=== PATIENT | female | born 1960 | race Caucasian/White ===

== ENCOUNTER 2020-07-21 14:41 | Outpatient (CLI) | payer BC, OTHER ==
[2020-07-22 13:54] LABS: SARS-CoV-2 MS2 Positive; SARS-CoV-2 N Gene Negative; SARS-CoV-2 S Gene Negative; SARS-CoV-2 by NAA Not Detected (NotDetected); SARS-CoV-2 orf1ab Negative
== END 2020-07-21 14:42 | disposition home or self-care (01) ==
LOC: LABBT 14:41
PROVIDERS: ATTEND Surgery
DX: K21.9 Gastro-esophageal reflux disease without esophagitis (principal); K44.9 Diaphragmatic hernia without obstruction or gangrene; Z20.828 Contact with and (suspected) exposure to other viral communicable diseases
CPT/HCPCS: 87635; U0003

== ENCOUNTER 2020-07-21 15:30 | Inpatient (IN) | payer BC ==
[2020-07-26] MEDS ORDERED: Ondansetron PF 4 MG/2 ML Vial ONE (10:05)
[2020-07-26] MEDS ORDERED: Dexamethasone 20 MG/5 ML VIAL ONE (10:05)
[2020-07-26] MEDS ORDERED: Succinylcholine Chloride 20 MG/ML 10 ml SYRINGE FS ONE (10:05)
[2020-07-26] MEDS ORDERED: Glycopyrrolate 0.2 MG/ML 5 ML SYRINGE ONE (10:05)
[2020-07-26] MEDS ORDERED: PHENYLEPHRINE-NS 100 MCG/ML 10 ML SYRINGE ONE (10:05)
[2020-07-26] MEDS ORDERED: PROPOFOL 200 MG/20 ML VIAL ONE (10:05)
[2020-07-26] MEDS ORDERED: Lidocaine 1% PF 5 ML VIAL ONE (10:05)
[2020-07-26] MEDS ORDERED: Rocuronium Bromide 10 MG/ML (10ML VIAL) ONE (10:05)
[2020-07-26] MEDS ORDERED: cefOXitin Sodium/Dextrose 2 GM/50 ML BAG ONE (11:33)
[2020-07-26] MEDS ORDERED: Scopolamine 1.5 mg/72 hour Patch ONE (12:07)
[2020-07-26] MEDS ORDERED: Enoxaparin Sodium 40 MG/0.4 ML SYRINGE ONE (12:08)
[2020-07-26] MEDS ORDERED: Midazolam HCl 2 mg/2 ml Vial ONE (13:09)
[2020-07-26] MEDS ORDERED: Propofol 1,000 MG/100 ML VIAL IV ONE (13:09)
[2020-07-26] MEDS ORDERED: Fentanyl 250 MCG/5 ML VIAL ONE (13:09)
[2020-07-26 13:24] LABS: #Eosinphils 0.1 thou/uL (0.0-0.7); #Lymphocytes 1.1 thou/uL (1.20-3.40); #Monocytes 0.5 thou/uL (0.11-0.59); #Neutrophils 4.8 thou/uL (1.40-6.50); %Basophils 0.1 % (0.0-1.0); %Eosinophils 1.8 % (0.0-10.0); %Lymphocytes 16.8 % (21.0-51.0); %Monocytes 8.3 % (0.0-10.0); Hemoglobin 12.6 g/dL (12.0-16.0); Mean Corpuscular HGB CONC 32.6 g/dL (32.0-36.0); Mean Corpuscular Hemoglobin 28.1 pg (27.0-31.0); Mean Corpuscular Volume 86.3 fL (78.0-98.0); Mean Platelet Volume 6.6 fL (7.4-10.4); Platelet Count 322 thou/uL (130-400); RBC Distribution Width 18.3 % (11.5-14.5); Red Blood Cell (RBC) Count 4.46 mill/uL (4.20-5.40); White Blood Cell (WBC) Count 6.6 thou/uL (4.8-10.8)
[2020-07-26 13:50] LABS: Anion Gap 15 mmol/L (10-20); BUN (Urea Nitrogen) 20 mg/dL (9.8-20.1); Calc. Creatinine Clearance 0 mL/min (70-130); Calcium 8.5 mg/dL (7.8-10.44); Carbon Dioxide 24 mmol/L (22-29); Chloride 103 mmol/L (98-107); Estimated GFR-MDRD 81; Glucose 70 mg/dL (70-105); Potassium 3.8 mmol/L (3.5-5.1); Sodium 138 mmol/L (136-145)
[2020-07-26] MEDS ORDERED: Lidocaine 1% w/Epinephrine 1:100K 20 ML VIAL ONE (13:59)
[2020-07-26] MEDS ORDERED: Bupivacaine PF 0.5% 30 ML VIAL ONE (13:59)
--- NOTE | 2020-07-26 17:26 | PDOC.OP ---
Operative Note - Operative Note Operative Note: DATE OF SURGERY: July 26, 2020 SURGEON: Pierre Cazares MD PREOPERATIVE DIAGNOSIS: GERD with esophagitis Hiatal hernia Obesity status post sleeve gastrectomy POSTOPERATIVE DIAGNOSIS: GERD with esophagitis Hiatal hernia Obesity status post sleeve gastrectomy PROCEDURE: Paraesophageal hernia repair INDICATIONS: 89-year-old female with morbid obesity and the comorbidities of morbid obesity who underwent sleeve gastrectomy in 2013. Since that time, she has developed significant gastroesophageal reflux disease with esophagitis. She was evaluated in clinic and deemed a good candidate for hiatal hernia repair with partial gastrectomy and Guille-en-Y reconstruction. PROCEDURE IN DETAIL: The patient was brought to the operating room and positioned supine on the operating room table. After induction of general, endotracheal anesthesia, the patient was prepared and draped in the usual fashion. Prior to beginning the procedure, a complete timeout was performed with all members of the operative team being present and in agreement. Access to the abdomen was obtained in the right upper quadrant using an optical trocar under direct visualization. A Tate retractor was placed in the left lobe of the liver was elevated. The abdomen was insufflated and additional trochars placed under direct visualization. The abdominal cavity was examined and dense omental and small bowel adhesions were noted to a prior mesh hernioplasty. Lysis of adhesions was performed in order to mobilize enough small bowel for Guille-en-Y reconstruction. Given the density of the adhesions to the mesh, this was abandoned and we proceeded with paraesophageal hernia repair. The pars flaccida was entered bluntly and dissected to the hiatus. The hernia sac was entered at the right colton and the esophagus dissected. The dissection continued anteriorly and posteriorly until the cessation of fibers were encountered. The left colton was dissected in a similar fashion. Circumferential dissection of the esophagus was performed until 2 to 3 cm of esophagus lie within the abdominal cavity without any tension. A posterior cruroplasty was performed using ohbarbed permanent suture in a running fashion. This was done over a sleeve gastrectomy calibration tube. The tube was advanced to the pylorus to identify the morphology of the sleeve. While there may be slight tapering at the angularis, the sleep seemed to be of adequate caliber without stricture. The abdomen was examined and excellent hemostasis achieved. The 12 mm trocar sites were closed using 0 Vicryl ties and a suture passer. The skin was closed with Monocryl and dressed with skin adhesive dressing. At the conclusion of the case, all sponge and instrument counts were correct. ESTIMATED BLOOD LOSS: Minimal COMPLICATIONS: None INTRAOPERATIVE BLOOD TRANSFUSIONS: None GRAFTS / IMPLANTS: None SPECIMENS: None DISPOSITION: The patient was transported to the postoperative recovery unit in good conditions to be transferred to the floor when criteria met.
[2020-07-26] MEDS ORDERED: Hydrocodone-Acetamin 15 ML UDCUP PO PRN (17:34)
[2020-07-26] MEDS ORDERED: Promethazine HCl 25 MG/ML VIAL IM PRN (17:34)
[2020-07-26] MEDS ORDERED: Ondansetron PF 4 MG/2 ML Vial IVP PRN (17:34)
[2020-07-26] MEDS ORDERED: Dextrose 5% in Water 1,000 ML IV PRN (17:34)
[2020-07-26] MEDS ORDERED: Dextrose 50% Abboject 50 ML SYRINGE SLOW IVP PRN (17:34)
[2020-07-26] MEDS ORDERED: diphenhydrAMINE 50 MG/ML VIAL IVP PRN (17:34)
[2020-07-26] MEDS ORDERED: Fentanyl 100 MCG/2 ML VIAL ONE (17:55)
[2020-07-26] MEDS ORDERED: Ketorolac Tromethamine 30 MG/ML VIAL IVP SCH (18:00)
[2020-07-26] MEDS: Ketorolac Tromethamine 30 MG/ML VIAL IVP SCH (20:09)
[2020-07-26] MEDS: Carvedilol 6.25 MG TAB PO SCH (20:10)
[2020-07-26] MEDS: 1/2 NS w/KCL 20 mEq 1,000 ML IV SCH (20:17)
[2020-07-26 20:22] VITALS: BMI 31.6
[2020-07-26] MEDS ORDERED: rOPINIRole HCl 1 MG TAB PO SCH (21:00)
--- NOTE | 2020-07-26 22:24 | EKG ---
Test Reason : PREOP Blood Pressure : / mmHG Vent. Rate : 068 BPM Atrial Rate : 068 BPM P-R Int : 176 ms QRS Dur : 138 ms QT Int : 462 ms P-R-T Axes : 069 -22 055 degrees QTc Int : 491 ms Normal sinus rhythm with sinus arrhythmia Left bundle branch block Abnormal ECG Confirmed by Marcelle VARMA ([id number]) on 07/26/2020 10:24:39 PM Referred By: AURELIO Confirmed By:Marcelle VARMA
[2020-07-27] MEDS: 1/2 NS w/KCL 20 mEq 1,000 ML IV SCH ×2 (03:32→12:36)
[2020-07-27] MEDS: Ketorolac Tromethamine 30 MG/ML VIAL IVP SCH ×3 (03:32→15:14)
[2020-07-27 05:14] LABS: #Lymphocytes 0.6 thou/uL (1.20-3.40); #Monocytes 0.3 thou/uL (0.11-0.59); #Neutrophils 5.7 thou/uL (1.40-6.50); %Basophils 0.2 % (0.0-1.0); %Lymphocytes 9.8 % (21.0-51.0); %Monocytes 3.7 % (0.0-10.0); %Neutrophils 86.3 % (42.0-75.0); Hemoglobin 11.9 g/dL (12.0-16.0); Mean Corpuscular HGB CONC 31.2 g/dL (32.0-36.0); Mean Corpuscular Hemoglobin 27.1 pg (27.0-31.0); Mean Corpuscular Volume 86.8 fL (78.0-98.0); Mean Platelet Volume 6.7 fL (7.4-10.4); Platelet Count 321 thou/uL (130-400); RBC Distribution Width 18.2 % (11.5-14.5); White Blood Cell (WBC) Count 6.6 thou/uL (4.8-10.8)
[2020-07-27 05:33] LABS: Anion Gap 15 mmol/L (10-20); BUN (Urea Nitrogen) 15 mg/dL (9.8-20.1); Calc. Creatinine Clearance 97 mL/min (70-130); Calcium 7.7 mg/dL (7.8-10.44); Carbon Dioxide 21 mmol/L (22-29); Chloride 102 mmol/L (98-107); Estimated GFR-MDRD 82; Glucose 92 mg/dL (70-105); Potassium 4.8 mmol/L (3.5-5.1); Sodium 133 mmol/L (136-145)
[2020-07-27] MEDS ORDERED: Levothyroxine Sodium 88 MCG TAB PO SCH (06:00)
[2020-07-27] MEDS: Carvedilol 6.25 MG TAB PO SCH (08:24)
--- NOTE | 2020-07-27 08:24 | PDOC.BPN ---
- Brief Progress Note Encounter Date: 07/27/20 Encounter Time: 08:21 DATE OF ADMISSION: July 26, 2020 DATE OF DISCHARGE: July 27, 2020 ADMISSION DIAGNOSES: Morbid obesity status post sleeve gastrectomy Hiatal hernia with GERD DISCHARGE DIAGNOSES: Morbid obesity status post sleeve gastrectomy Hiatal hernia with GERD PROCEDURES: Robotic paraesophageal hernia repair HOSPITAL COURSE: 60-year-old female with morbid obesity and the comorbidities of morbid obesity status post sleeve gastrectomy in 2013, who was evaluated for severe GERD in clinic. They presented on July 26, 2020 for paraesophageal hernia repair with partial gastrectomy and Guille-en-Y reconstruction. Intraoperatively, they were found to have extensive interloop adhesions, so the reconstruction was not attempted. She underwent a paraesophageal hernia repair.. They tolerated the procedure well, and were transferred to the floor. On the floor, bariatric clear liquid diet was initiated 4 hours postoperatively. The patient was also encouraged to walk 4 hours postoperatively and four times daily thereafter. Chemoprophylaxis for deep vein thrombosis was initiated preoperatively and continued through their postoperative hospitalization in addition to LIV chrise, SCD, and early ambulation. Strict oral intake of clear liquids was recorded to ensure adequate self hydration prior to discharge. Antiemetics were administered as needed as needed for nausea. On POD 1, their pain was well- controlled with oral analgesia only, they were ambulating independently and voiding spontaneously. They had demonstrated adequate oral intake to ensure self hydration and they were appropriate for discharge. CONSULTS: None DISCHARGE MEDICATIONS: see Discharge Medication Reconciliation. Resume all home medication EXAMINATION: General: alert and oreinted, no acute distress, resting comfortably Cardiovascular: regular rate and rhythm Pulmonary: normal respirations, good tidal volume Abdomen: soft, non-tender, non-distended, incisions clean and intact Extremities: no edema, palpable pulses DISCHARGE INSTRUCTIONS: 1. Advanced bariatric diet as tolerated 2. Advance activity as tolerated. Avoid heavy lifting and straining until after postoperative clinic evaluation. Ambulate daily. 3. Take medications as instructed. 4. Follow-up 1 weeks. Contact surgery clinic for appointment. 5. Do not remove Dermabond. Wash normally. It will come off on its own. 6. Consider [id number] stool softener or laxative while taking narcotic pain medication. 7. Contact the surgery clinic ([phone]) or report to the emergency department for persistent fevers, increasing pain, persistent nausea or vomiting.
[2020-07-27] MEDS ORDERED: DULoxetine 30 MG CAP PO SCH (09:00)
[2020-07-27] MEDS ORDERED: Pantoprazole 40 MG VIAL IVP SCH (09:00)
[2020-07-27] MEDS ORDERED: Enoxaparin Sodium 40 MG/0.4 ML SYRINGE SC SCH (09:00)
[2020-07-27] MEDS ORDERED: Escitalopram Oxalate 10 mg Tablet PO SCH (09:00)
[2020-07-27 15:57] VITALS: BP 127/63; TEMP 98
== END 2020-07-27 17:05 | disposition home or self-care (01) | DRG 328 ==
LOC: SURG A 07-26 11:06
PROVIDERS: ADMIT Surgery; ATTEND Surgery
PROC: 0BQT0ZZ Repair Diaphragm, Open Approach (ICD-10-PCS; principal; 2020-07-26)
PROC: 0DN80ZZ Release Small Intestine, Open Approach (ICD-10-PCS; 2020-07-26)
DX: K44.9 Diaphragmatic hernia without obstruction or gangrene (principal); K21.0 Gastro-esophageal reflux disease with esophagitis; Z96.611 Presence of right artificial shoulder joint; Z96.652 Presence of left artificial knee joint; E89.0 Postprocedural hypothyroidism; E66.01 Morbid (severe) obesity due to excess calories; Z68.31 Body mass index [BMI] 31.0-31.9, adult; Z79.899 Other long term (current) drug therapy; Z79.890 Hormone replacement therapy
CPT/HCPCS: 36415; 80048; 85025; 93005; 93010; 94760; C9113; J0694; J1100; J1650; J1885; J2250; J2405; J2704; J3010; J3480; S0020

== ENCOUNTER → 2024-10-14 | Outpatient (CLI) | payer MEDICARE, BC | LOC: RAD 08:31 | PROVIDERS: ATTEND Surgery | DX: K21.9 Gastro-esophageal reflux disease without esophagitis (principal); K31.4 Gastric diverticulum; K44.9 Diaphragmatic hernia without obstruction or gangrene | CPT/HCPCS: 74246 ==

== ENCOUNTER 2024-10-23 10:52 | Outpatient (CLI) | payer MEDICARE, BC | END 2024-10-23 10:53 | disposition home or self-care (01) | LOC: BICMAMMO 10:52 | PROVIDERS: ATTEND Internal Medicine Rheumatology | DX: M81.0 Age-related osteoporosis without current pathological fracture (principal) | CPT/HCPCS: 77080 ==